=== PATIENT | female | born 1945 | race Caucasian/White ===

== ENCOUNTER 2016-06-26 06:32 | Day surgery (SDC) | payer SELFPAY ==
[2016-06-20 13:11] VITALS: BMI 29.4
[2016-06-26] MEDS ORDERED: SUCCINYLCHOLINE CHLORIDE 200 MG/10 ML VIAL ONE (07:13)
[2016-06-26] MEDS ORDERED: ROCURONIUM BROMIDE 50 MG/5 ML VIAL ONE (07:13)
[2016-06-26] MEDS ORDERED: PROPOFOL 20 ML ONE ×2 (07:13)
[2016-06-26] MEDS ORDERED: POVIDONE-IODINE 5% OPHTHALMIC PREP 30 ML SOLUTION ONE (07:27)
[2016-06-26] MEDS ORDERED: TETRACAINE 0.5% OPHTH SOLN 2 ML BOTTLE ONE (07:27)
[2016-06-26] MEDS ORDERED: LIDOCAINE 1%-EPI 1:100,000 30 ML MDV IJ ONE (07:28)
[2016-06-26] MEDS ORDERED: BSS (NA/CA/MG/K) BALANCED SALT SOLUTION OPHTH SOLN 15 ML BOTTLE ONE (07:28)
[2016-06-26] MEDS ORDERED: BACITRACIN 3.5 GM OPTHALMIC OINT TUBE ONE (07:28)
[2016-06-26] MEDS ORDERED: BUPIVACAINE HCL/PF 0.5% (5MG/ML) 10 ML VIAL ONE (07:28)
[2016-06-26] MEDS ORDERED: THROMBIN (BOVINE) 5,000 UNIT VIAL TP ONE (07:29)
[2016-06-26] MEDS ORDERED: MIDAZOLAM HCL 2 MG/2 ML SINGLE DOSE VIAL ONE (07:35)
[2016-06-26] MEDS ORDERED: LIDOCAINE 1%/EPI 1:100000 (50 ML MULTI DOSE VIAL) INF ONE ×4 (08:23→10:31)
[2016-06-26] MEDS ORDERED: ceFAZolin SODIUM 1 GM VIAL ONE (08:33)
[2016-06-26] MEDS ORDERED: ePHEDrine SULFATE 50 MG/1 ML AMPULE ONE (08:35)
[2016-06-26] MEDS ORDERED: oxyCODONE HCL 5 MG TABLET PO PRN ×3 (08:37→12:30)
[2016-06-26] MEDS ORDERED: ONDANSETRON 4 MG/2 ML VIAL IVPUSH PRN (08:37)
[2016-06-26] MEDS ORDERED: PROMETHAZINE HCL 25 MG/1 ML VIAL IVPUSH PRN (08:37)
[2016-06-26] MEDS ORDERED: LACTATED RINGERS SOLUTION 1,000 ML IV SCH ×2 (08:45→12:30)
[2016-06-26] MEDS ORDERED: DESFLURANE GAS 240 ML BOTTLE IH ONE (08:57)
[2016-06-26] MEDS ORDERED: KETOROLAC TROMETHAMINE 30 MG/1 ML VIAL ONE (09:08)
[2016-06-26] MEDS ORDERED: ONDANSETRON 4 MG/2 ML VIAL ONE (09:08)
[2016-06-26] MEDS ORDERED: LIDOCAINE HCL/PF 2% SDV 5ML VIAL ONE (09:50)
[2016-06-26] MEDS ORDERED: ONDANSETRON 4 MG/2 ML VIAL IVPB PRN (12:30)
[2016-06-26] MEDS ORDERED: BACITRACIN 3.5 GM OPTHALMIC OINT TUBE OU SCH (15:15)
[2016-06-26 16:32] VITALS: BP 120/50; PULSE 80; TEMP 98.8
--- NOTE | 2016-06-27 13:47 | PATH ---
Surgical Pathology Report Patient Name: HALEIGH BLANCAS [place]. Rec. #: [id number] /Age/Gender: 1945 (Age: 70) / F Account: [id number] Location: [facility] AMBULATORY Taken: 06/26/2016 Received: 06/26/2016 Reported: 06/27/2016 Physicians: Juan José Greenwood Specimen(s) Received UPPER AND LOWER EYELID FAT Clinical History Cosmetic Final Diagnosis SKIN AND SOFT TISSUE, UPPER AND LOWER EYELID, BLEPHAROPLASTY: UNREMARKABLE SKIN AND ADIPOSE TISSUE (GROSS ONLY). Electronically Signed Byron Conte M.D. Gross Description Received in formalin, labeled "upper and lower eyelid fat," is a 2.8 x 2.4 x 0.3 cm aggregate of multiple ashton-yellow, irregular, unremarkable skin and fat fragments. No sections are submitted, gross only. /06/26/201606/26/2016
--- NOTE | 2016-06-27 19:29 | OP ---
DATE OF OPERATION: 06/26/2016 TITLE OF PROCEDURE: Bilateral upper eyelid and bilateral lower eyelid blepharoplasty. PREOPERATIVE DIAGNOSIS: Aging upper and lower eyelids. POSTOPERATIVE DIAGNOSIS: Aging upper and lower eyelids. The patient is marked in the holding area preoperatively. A supratarsal marking is made 8 mm from the upper eyelid margin. This is traced into a lateral mooretown's foot. The superior limb of the upper eyelid excision is marked using forceps pinch test. After this is completed, attention is then directed toward the lower eyelid where lateral mooretown's foot is identified. Risks, benefits, and alternatives to the procedure discussed with the patient. She understands and agrees to proceed. The patient is brought to the operating room. A round of Ancef is given preoperatively. Sequential compression stockings had been applied. MASOOD hose are applied. The patient received a gram of Ancef. She is prepped and draped in standard surgical fashion. Timeout was called. Patient, procedure, incision sites are verified. The anesthesia for this case is general endotracheal anesthesia. The patient received local anesthetic 1% lidocaine with 1:100,000 epinephrine injected, a total of 3 mL is injected into each lower eyelid and an additional 1.5 mL is injected into each upper eyelid. This is done sequentially through the case. The sequence of eyelids operated on was first the left lower followed by the right lower followed by the right upper followed by the left upper. The lower eyelid procedure is performed as follows. A timeout is called. Patient, procedure, incision sites are verified. The cornea is protected Lacri-Lube. A 4-0 nylon traction suture is applied to the lower eyelid margin. Incision is made along the subciliary line and continued into a lateral mooret[place]'s foot incision. The skin flap is developed for 1 cm after which this is transitioned into a skin muscle flap and continued pre-septally until the orbital rim is identified. At this point the eyelid is able to be retracted with a retractor. Fat is then able to be removed with small punctures within the septum, removing separately nasal, central and lateral fat. The end point is level even contour the eyelid plane. Residual fat is then secured to the orbital rim. This is done by first dividing the arcus marginalis along the inferior orbital rim and with a blunt Gibsonia elevator exposing a preperiosteal plane along the border of the orbit. Fat is then able to be secured to the orbital rim along this plane blending the junction between the upper cheek and the lower eyelid. This is done with a series of interrupted 5-0 Monocryl suture. Once this is completed, hemostasis is achieved, and attention is then directed toward the right lower eyelid where a mirror image procedure is performed. Prior to closure, the upper eyelids are then addressed. The pattern that had been marked preoperatively is then excised, first on the right upper eyelid, this is performed with a traction suture on the upper eyelid of 4-0 nylon. The skin is removed leaving orbicularis oculi muscle intact. Nasally, a small puncture through the orbicularis oculi muscle and septum reveals the nasal fat pad, which is able to be expressed and transected at a level flush with the orbital rim. Hemostasis was achieved. Closure was then performed with a series of interrupted 6-0 Prolene suture laterally, and a running subcuticular 6-0 Prolene suture along the upper eyelid and with a pullout loop at the mid pupillary line. Mirror image procedure was then performed on the left upper eyelid. Closure of the lower eyelid is then performed. Each lower eyelid is irrigated with saline, hemostasis is once again assured. Closure is performed. The skin is redraped with mouth open to prevent over-excision of skin. Lateral wedge of skin on the cheek is excised out into the mooretown's foot, and the residual skin along the subciliary line is then excised without any tension at all. Closure is performed laterally in the mo[place]'s foot with a series of interrupted 6-0 nylon suture, and along the subciliary line with a running 6-0 plain gut. Mirror image closure and skin excision is performed on the right side after which it is noted that there is swelling and bruising on the left side. Sutures are removed, a small bleeding vessel on the orbicularis oculi muscle is identified and cauterized with bipolar cautery. The wound is copiously irrigated once again with normal saline, and closure is reperformed in the identical fashion as previously described. Wounds are dressed with bacitracin ophthalmic, supportive Steri-Strips are applied to the cheek to elevate the lower eyelid. The lid position appears to be excellent without any need for canthopexy. The patient is awoken from anesthesia, transferred to recovery without complication. JOSE JMiguel [id number]
== END 2016-06-26 16:15 | disposition home or self-care (01) ==
LOC: FASU 06:32
PROVIDERS: ATTEND Plastic Surgery
PROC: 080N0ZZ Alteration of Right Upper Eyelid, Open Approach (ICD-10-PCS; 2016-06-26)
PROC: 080P0ZZ Alteration of Left Upper Eyelid, Open Approach (ICD-10-PCS; 2016-06-26)
PROC: 080Q0ZZ Alteration of Right Lower Eyelid, Open Approach (ICD-10-PCS; 2016-06-26)
PROC: 080R0ZZ Alteration of Left Lower Eyelid, Open Approach (ICD-10-PCS; principal; 2016-06-26 08:42)
DX: Z41.1 Encounter for cosmetic surgery (principal); H02.89 Other specified disorders of eyelid
CPT/HCPCS: 88304-TC; 94760

== ENCOUNTER 2020-02-25 08:25 | Day surgery (SDC) | payer OTHER ==
[2020-02-19 09:42] VITALS: BMI 28.3
[2020-02-25] MEDS ORDERED: LIDOCAINE HCL 2% (20ML MULTI-DOSE VIAL) ONE (08:54)
[2020-02-25] MEDS ORDERED: MIDAZOLAM HCL 2 MG/2 ML SINGLE DOSE VIAL ONE (09:35)
[2020-02-25] MEDS ORDERED: PROPOFOL 20 ML ONE (09:35)
[2020-02-25] MEDS ORDERED: LIDOCAINE HCL 2% (50ML VIAL) NR ONE (09:43)
[2020-02-25 10:25] VITALS: TEMP 97.6
--- NOTE | 2020-02-25 10:29 | OP ---
DATE OF OPERATION: 02/25/2020 PREOPERATIVE DIAGNOSIS: Left carpal tunnel syndrome. POSTOPERATIVE DIAGNOSIS: Left carpal tunnel syndrome. OPERATIVE PROCEDURE: Left carpal tunnel release. ANESTHESIA: Local with sedation. COMPLICATIONS: None. ESTIMATED BLOOD LOSS: Minimal. INDICATIONS FOR PROCEDURE: The patient is a 74-year-old female with the above finding indicated for operative treatment. Risks, benefits and alternatives were discussed with patient at length. Proper informed consent was obtained. PROCEDURE: After proper identification of patient and correct operative site, patient was brought to the operating room, placed supine on the operating table. All bony prominences well padded. Sedation and local anesthesia were given. Left upper extremity was prepped and draped in the usual sterile fashion. Well-padded tourniquet was placed over a sterile prep. Esmarch bandage was used to exsanguinate the left upper extremity. Tourniquet was inflated to 250 mmHg. Longitudinal incision was made in the proximal aspect of the palm. Incision was taken sharply through the skin with blunt and sharp dissection through the subcutaneous tissues. Palmar fascia was divided longitudinally. Transcarpal ligament was divided longitudinally along with the distal 4 cm of the antebrachial fascia under direct visualization with loupe magnification. This provided complete release of the median nerve at the wrist. The wound was repaired with 5-0 fast-absorbing plain gut suture as well as Dermabond. Sterile dressings were applied. Patient was brought to recovery in stable condition. She tolerated the procedure well. BETSY BLAIR M.D. [id number]
[2020-02-25 10:48] VITALS: BP 135/78; PULSE 75
== END 2020-02-25 11:00 | disposition home or self-care (01) ==
LOC: FASU 08:25
PROVIDERS: ATTEND Orthopaedic Surgery Hand Surgery
PROC: 01N50ZZ Release Median Nerve, Open Approach (ICD-10-PCS; principal; 2020-02-25 09:50)
DX: G56.02 Carpal tunnel syndrome, left upper limb (principal)
CPT/HCPCS: 82962

== ENCOUNTER 2020-03-17 06:21 | Day surgery (SDC) | payer OTHER ==
[2020-03-15 10:57] VITALS: BMI 28.3
[2020-03-17] MEDS: PHENYLEPHRINE 2.5% OPHTH SOLN 15 ML BOTTLE ONE ×3 (07:00→07:10)
[2020-03-17] MEDS: TROPICAMIDE 1% OPHTH SOLN 15 ML BOTTLE ONE ×3 (07:00→07:10)
[2020-03-17] MEDS: CIPROFLOXACIN 0.3% EYE DROPS 5 ML BOTTLE ONE ×3 (07:00→07:10)
[2020-03-17] MEDS: CYCLOPENTOLATE 2% OPHTH SOLN 2 ML BOTTLE ONE ×3 (07:00→07:10)
[2020-03-17] MEDS ORDERED: TETRACAINE 0.5% OPHTH SOLN 2 ML BOTTLE ONE (07:25)
[2020-03-17] MEDS ORDERED: BSS (NA/CA/MG/K) BALANCED SALT SOLUTION OPHTH SOLN 15 ML BOTTLE ONE (07:25)
[2020-03-17] MEDS ORDERED: LIDOCAINE 1% P/F 10 MG/ML VIAL ONE (07:25)
[2020-03-17] MEDS ORDERED: NEO/POLYMYX B SULF/DEXAMETH OPHTHALMIC 5ML BOTTLE ONE (07:26)
[2020-03-17] MEDS ORDERED: CARBACHOL 0.01% INTRA-OCULAR 1.5 ML VIAL ONE (07:26)
[2020-03-17] MEDS ORDERED: EPINEPHrine/PF 1 MG/1 ML (1:1,000) AMPULE ONE (07:36)
[2020-03-17] MEDS ORDERED: MIDAZOLAM HCL 2 MG/2 ML SINGLE DOSE VIAL ONE ×2 (08:11→08:22)
[2020-03-17] MEDS ORDERED: SUCCINYLCHOLINE CHLORIDE 200 MG/10 ML SYRINGE ONE (08:12)
[2020-03-17] MEDS ORDERED: PROPOFOL 20 ML ONE (08:12)
[2020-03-17 09:19] VITALS: BP 121/69; PULSE 89; TEMP 97.9
--- NOTE | 2020-03-17 11:11 | OP ---
DATE OF OPERATION: 03/17/2020 OPERATIVE PROCEDURE: Lens phacoemulsification with posterior chamber intraocular lens placement left eye. PREOPERATIVE DIAGNOSIS: Visually significant cataract of left eye. POSTOPERATIVE DIAGNOSIS: Visually significant cataract of left eye. SURGEON: Vladimir Weaver M.D. ANESTHESIA: MAC PROCEDURE: The patient was brought to the operating room and placed under monitored anesthesia care by Anesthesia. A drop of tetracaine was then placed over the left eye. The patient was then prepped and draped in the usual sterile manner. A speculum was then placed over the left eye. The eye was then well irrigated with copious amounts of BSS (balanced salt solution). The operating microscope was then moved into position. A paracentesis was performed using a 15-degree blade. At this point 0.5 mL of 1% preservative-free lidocaine was injected into the anterior chamber. Amvisc Plus was then injected into the anterior chamber. A clear corneal incision was then formed using a 2.2 mm keratome. A capsulorrhexis was then performed in a continuous circular fashion beginning with a cystotome, completed with a Utrata forceps. Hydrodissection was then performed using BSS on a cannula. The phaco probe was then introduced through the corneal wound and the cataract was removed using the phaco chop technique. Approximately 3 seconds of absolute phaco time was used. The remaining cortex was then removed using irrigation and aspiration with an I/A probe. The capsule was then filled with regular Amvisc and the capsule was noted to be intact. A previously selected foldable posterior chamber intraocular lens was then injected into the capsule through the corneal wound using a lens injector. It was then dialed into position using a Sinskey hook. The Amvisc was then removed using irrigation and aspiration. Miostat was then injected through the paracentesis to constrict the pupil. The paracentesis and corneal wound were then hydrated and noted to be watertight. A drop of Maxitrol was then placed over the eye. The speculum was removed and clear shield was taped over the eye. The patient tolerated the procedure well and there were no surgical complications. The patient was asked to follow up in my office the next day. VLADIMIR WEAVER M.D. [id number]
== END 2020-03-17 09:30 | disposition home or self-care (01) ==
LOC: FASU 06:21
PROVIDERS: ATTEND Ophthalmology
PROC: 08RK3JZ Replacement of Left Lens with Synthetic Substitute, Percutaneous Approach (ICD-10-PCS; principal; 2020-03-17 08:21)
DX: H26.8 Other specified cataract (principal)
CPT/HCPCS: 82962

== ENCOUNTER 2020-05-03 10:14 | Day surgery (SDC) | payer OTHER ==
[2020-04-27 15:34] VITALS: BMI 28.3
[2020-05-03] MEDS: CYCLOPENTOLATE 2% OPHTH SOLN 2 ML BOTTLE ONE ×3 (11:15→11:25)
[2020-05-03] MEDS: TROPICAMIDE 1% OPHTH SOLN 15 ML BOTTLE ONE ×3 (11:15→11:25)
[2020-05-03] MEDS: CIPROFLOXACIN 0.3% EYE DROPS 5 ML BOTTLE ONE ×3 (11:15→11:25)
[2020-05-03] MEDS: PHENYLEPHRINE 2.5% OPHTH SOLN 15 ML BOTTLE ONE ×3 (11:15→11:25)
[2020-05-03] MEDS ORDERED: MIDAZOLAM HCL 2 MG/2 ML SINGLE DOSE VIAL ONE (12:50)
[2020-05-03] MEDS ORDERED: NEO/POLYMYX B SULF/DEXAMETH OPHTHALMIC 5ML BOTTLE ONE (13:01)
[2020-05-03] MEDS ORDERED: ONDANSETRON 4 MG/2 ML VIAL ONE (13:09)
[2020-05-03 13:40] VITALS: TEMP 98
[2020-05-03 13:54] VITALS: BP 130/75; PULSE 87
== END 2020-05-03 14:00 | disposition home or self-care (01) ==
LOC: FASU 10:14
PROVIDERS: ATTEND Ophthalmology
PROC: 08RJ3JZ Replacement of Right Lens with Synthetic Substitute, Percutaneous Approach (ICD-10-PCS; principal; 2020-05-03 13:11)
DX: H26.8 Other specified cataract (principal)
CPT/HCPCS: 82962